=== PATIENT | male | born 1990 | race Caucasian/White ===

== ENCOUNTER 2024-11-11 18:14 | Emergency (ER) | payer OTHER, SELFPAY ==
[2024-11-11 18:18] VITALS: BP 160/94
[2024-11-11 19:05] VITALS: BMI 29.4
--- NOTE | 2024-11-11 19:05 | ED.GENMED ---
History of Present Illness
General
Chief Complaint: Male Genito-Urinary Symptoms
Source: patient
Exam Limitations: none
Time Seen by Provider: 11/11/24 18:50
History of Present Illness
History of Present Illness:
33yoM with no significant past medical history presenting for evaluation of testicular pain. Patient has a known cyst in the L scrotum for the past 15+ years. He never had any pain so his PCP was monitoring it. He was golfing over the weekend and
he noticed that his L hemiscrotum was enlarged and 'blew up like a balloon.' His cyst also seemed much larger and was painful. His scrotal swelling has improved but the cyst continues to be enlarged. He had some transient suprapubic discomfort
which has resolved. He denies any dysuria, hematuria, penile discharge, flank pain, abdominal pain, fevers, vomiting.
Phy Exam
General Physical Exam
General Presentation: well appearing and no apparent distress
General Skin: warm and dry
General Habitus: normal
General Mental: alert
ENT Exam
ENT Exam: normocephalic
Pulmonary Exam
Pulmonary Exam: no respiratory distress
Genitourinary Exam Male
Exam Male: other (Palpable cyst superior to L testicle that is mildly tender to touch. No significant scrotal swelling or skin changes noted.)
Neurological Exam
Neurological Exam: alert
Bill Coma Scale
Eye Opening: Spontaneous
Verbal Response: Oriented
Motor Response: Obeys Commands
GCS Total Score: 15
Skin Exam
Skin Exam: normal color and warm/dry
Psychiatric Exam
Psychiatric Exam: normal mood/affect
Course
Orders/Labs/Results
Orders:
Orders
11/11/24 19:04
Scrotum US [US Scrotum] Urgent
Comment:
Reason For Exam: L testicular pain, known cyst that enlarging
11/11/24 19:33
Urinalysis Reflex To Culture Urgent
Date Specimen was Collected: 11/11/24
Time Specimen was Collected: 19:15
Vital Signs
Initial and Last Documented VS:
Initial Vital Signs
Temp Pulse Resp BP Pulse Ox
98.0 F 69 16 160/94 98
11/11/24 18:18 11/11/24 18:18 11/11/24 18:18 11/11/24 18:18 11/11/24 18:18
Last Documented Vital Signs
Temp Pulse Resp BP Pulse Ox
98.0 F 77 18 141/86 97
11/11/24 18:18 11/11/24 21:07 11/11/24 21:07 11/11/24 21:03 11/11/24 21:07
MDM/Problems Addressed
Differential Diagnosis Includes:
33yoM here with L testicular pain. Hx of know cyst that is unusually not painful. Started having pain a few days ago after golfing and now cyst seems larger. Urinating normally. He is well appearing in no distress. There is a palpable cyst on exam
that is mildly tender. Differential diagnosis includes: cyst, epididymitis, orchitis, hydrocele, doubt torsion
Initial ED plan: Check UA and scrotal ultrasound.
*Pulse Oximetry
Patient hypoxic: no (97%)
*Critical Care Note
Total Time (30-74mins, 75-104mins- exclusive of procedures): Not Applicable
Update Note
Update Note:
UA bland without infection or hematuria. Ultrasound shows bilateral epididymal head cysts vs. spermatoceles and small bilateral hydroceles. Findings discussed with patient. Supportive care discussed including scrotal elevation, ice, and NSAIDs.
Advised f/u with urology and ED return precautions reviewed.
ED Attending Note
-
Portions of this chart may have been created with voice recognition software.� Occasional wrong word or��sound alike� substitutions may have occurred due to the inherent limitations of voice recognition software.
Discharge Plan
Departure
Patient Disposition: Home (Routine Discharge)
Date of Disposition: 11/11/24
Time of Disposition: 20:57
Patient with high blood pressure during this ER visit?: Yes
Discharge Problem:
Cyst of scrotum
Instructions: How to Perform a Testicular Self-Exam
Referrals:
Gamal Patel MD [Active, Urology]
UNKNOWN - PT DOES,NOT KNOW [Family Provider]
Activity Restrictions/Additional Instructions:
Elevate your scrotum, apply ice, and take ibuprofen as needed for pain.
Please call tomorrow to schedule a follow-up with urology. Return to the ER with any worsening symptoms or severe pain.
Interventions
Interventions:
*Risk Screen - Suicide Last Done: 11/11/24 18:18
*General Assessment Last Done: 11/11/24 19:05
*Neglect/Abuse Screening Last Done: 11/11/24 18:18
*ED- Fall Risk Assessment Last Done: 11/11/24 19:05
*ED COVID-19 Vaccine History Last Done: 11/11/24 19:05
*Nursing Disposition Last Done: 11/11/24 21:08
ED-Male Genitourinary Assessment Last Done: 11/11/24 19:05
Discharge Date and Time
Discharge Date/Time: 11/11/24 21:10
Print Language: MACEDONIAN
[2024-11-11 19:08] VITALS: BP 152/68
[2024-11-11 19:39] LABS: Urine Albumin Negative (Neg - Trace); Urine Bilirubin Negative (Negative); Urine Character Clear (Clear); Urine Color Yellow; Urine Glucose Negative (Negative); Urine Ketone Negative (Negative); Urine Leukocyte Negative (Negative); Urine Nitrite Negative (Negative); Urine Occult Blood Negative (Negative); Urine Specific Gravity 1.025 (<1.030); Urine Urobilinogen Negative (Neg - 1+)
[2024-11-11 21:03] VITALS: BP 141/86
== END 2024-11-11 21:10 | disposition home or self-care (01) ==
LOC: EMR 18:14
PROVIDERS: Physician Assistant; EMERGENCY PHYSICIAN Emergency Medicine
DX: L72.9 Follicular cyst of the skin and subcutaneous tissue, unspecified (principal)
CPT/HCPCS: 99284; 76870; 81003; 93976